=== PATIENT | male | born 1970 | race African-American/Black ===

== ENCOUNTER 2020-07-24 17:52 | Emergency (ER) | payer MEDICAID ==
[~2020-07-24] VITALS: Ht 175.3 cm; Wt 95.3 kg
[2020-07-24 18:00] VITALS: BP 144/92
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
[2020-07-24] MEDS ORDERED: Methocarbamol 750mg tab ORAL ONE (18:30)
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
[2020-07-24] MEDS ORDERED: ACETAMINOPHEN500 MG ORAL (18:59)
[2020-07-24] MEDS ORDERED: ROBAXIN-500MG ORAL (18:59)
[2020-07-24] MEDS ORDERED: LIDODERM700 M1 TOPIC (18:59)
[2020-07-24 19:30] VITALS: BP 144/92
== END 2020-07-24 19:30 | disposition home or self-care (01) ==
LOC: EMR 18:10
DX: S16.1XXA Strain of muscle, fascia and tendon at neck level, initial encounter (principal); S39.012A Strain of muscle, fascia and tendon of lower back, initial encounter; V43.62XA Car passenger injured in collision with other type car in traffic accident, initial encounter; Y92.410 Unspecified street and highway as the place of occurrence of the external cause; M51.36 Other intervertebral disc degeneration, lumbar region; M43.12 Spondylolisthesis, cervical region
CPT/HCPCS: 72125; 72131; Z7502; 99284